=== PATIENT | female | born 1975 | race Hispanic/Latino ===

== ENCOUNTER 2020-09-26 18:32 | Emergency (ER) | payer OTHER | END 2020-09-26 20:45 | disposition home or self-care (01) | LOC: EDBD 18:32 → EDH 18:32 | DX: S00.93XA Contusion of unspecified part of head, initial encounter (principal); Y09 Assault by unspecified means; Y93.89 Activity, other specified; Y92.098 Other place in other non-institutional residence as the place of occurrence of the external cause; Y99.8 Other external cause status | CPT/HCPCS: 81025 ==